=== PATIENT | female | born 1945 | race Caucasian/White ===

== ENCOUNTER → 2024-04-22 07:55 | Outpatient (REF) | payer OTHER, SELFPAY | LOC: RAD 07:55 | PROVIDERS: ATTENDING PHYSICIAN Family Medicine | DX: E04.2 Nontoxic multinodular goiter (principal) | CPT/HCPCS: 76536 ==

== ENCOUNTER → 2024-05-03 10:34 | Outpatient (REF) | payer OTHER, SELFPAY | LOC: WDC 10:34 | PROVIDERS: ATTENDING PHYSICIAN Family Medicine | DX: M85.89 Other specified disorders of bone density and structure, multiple sites (principal); Z12.31 Encounter for screening mammogram for malignant neoplasm of breast | CPT/HCPCS: 77080 ==